=== PATIENT | female | born 1965 | race American Indian/Alaskan Native ===

== ENCOUNTER 2017-03-30 13:18 | Day surgery (SDC) | payer OTHER ==
[2017-03-30] MEDS ORDERED: NACL 0.9% 1000 ML 1,000 ML IV SCH (14:00)
--- NOTE | 2017-03-30 14:39 | Anesthesia Day of Surgery ---
Anesthesia Day of Surgery - Day of Surgery Patient Examined: Yes Patient H&P Reviewed: Yes Patient is NPO: Yes Beta Blockers: Yes
--- NOTE | 2017-03-30 14:41 | Anesthesia Consultation ---
Anesthesia Consult and Med Hx Date of service: 03/30/17 - Airway Anesthetic Teeth Evaluation: Good ROM Head & Neck: Adequate Mental/Hyoid Distance: Adequate Mallampati Class: Class II Intubation Access Assessment: Probably Good - Pulmonary Exam CTA: Yes - Cardiac Exam Cardiac Exam: RRR - Pre-Operative Health Status ASA Pre-Surgery Classification: ASA3 Proposed Anesthetic Plan: MAC - Pulmonary Hx Smoking: No Hx Asthma: Yes (had been hospitalized in the past. Inhaler everyday) Hx Sleep Apnea: No - Cardiovascular System Hx Hypertension: Yes (irregular heart beat on atenolol) Hx Heart Attack/AMI: No - Central Nervous System Hx Seizures: Yes (long time ago, on not meds) CVA: No - Gastrointestinal Hx Gastroesophageal Reflux Disease: No - Endocrine Hx Renal Disease: No Hx Liver Disease: No Hx Non-Insulin Dependent Diabetes: No - Hematic Hx Anemia: Yes - Other Systems Hx Cancer: No - Additional Comments Anesthesia Medical History Comments: NAC
[2017-03-30] MEDS ORDERED: DIPRIVAN 10 MG/ML IV ONE ×2 (16:18)
[2017-03-30] MEDS ORDERED: WATER FOR IRRIG STERILE IR ONE (16:29)
[2017-03-30] MEDS ORDERED: WATER FOR IRRIG STERILE ONE (16:29)
--- NOTE | 2017-03-30 17:03 | Operative Report ---
Operative Report Operative Report: Date of procedure: 03/30/2017 Procedure: Colonoscopy with Multiple Hot Biopsy Polypectomies. Attending physician: Darrell Arambula MD Cad Draftsman: Darrell Arambula MD Indication: Patient is a 51-year-old female who presents for screening colonoscopy. This colonoscopy serves to evaluate patient so that treatment may be directed based on the findings. Consent: Informed consent was obtained after advising the patient and family regarding nature of this procedure, its indications, potential benefits as well as possible complications including but not limited to bleeding perforation and adverse reaction to medication, infection as well as other cardiopulmonary complications. An informed written and verbal consent was then obtained after due opportunity was provided for questions and answers. Monitoring: Patient was monitored continuously with pulse oximetry and electrocardiographic recordings as well as blood pressure recordings. Vital signs remained stable throughout this procedure with no untoward events. Preoperative assessment: Patient was assessed immediately prior to this procedure for capacity to tolerate monitored anesthesia care and moderate sedation as well as general anesthesia. Patient's ASA classification is 2, Mallampati class is 2, Hyomental distance is 3. Instrument: [id number] video colonoscope Medications: Propofol given intravenously in divided doses. For details please refer to anesthesia records. Description of procedure: Patient was placed in the left lateral decubitus position after achieving sedation, a digital rectal examination was performed following which the colonoscope was introduced into the anal verge and advanced to the cecum which was identified by the cecal valve, the appendiceal orifice, as well as by the cecal strap and direct transillumination. The colonoscope was subsequently withdrawn with careful inspection of all mucosal surfaces. Patient tolerated this procedure well and was subsequently taken to the recovery room. The following findings were noted. Findings: Patient had 3 diminutive flat polyps in the sigmoid colon which measured 3-5 mm. These polyps were removed by hot biopsy polypectomy. There were scattered diverticula in the sigmoid colon and descending colon. The rest of the colon to the cecum was normal. On the retroflex view at the anal verge, patient had internal hemorrhoids. Impression: Multiple diminutive sigmoid colon polyp status post hot biopsy polypectomy. Diverticula disease of the colon. Internal hemorrhoids. Plan: Follow pathology report. High-fiber diet. Repeat colonoscopy in 5 years.
--- NOTE | 2017-03-30 17:04 | Discharge Summary ---
Short Stay Discharge Plan Activity: advance as tolerated Weight Bearing Status: Weight Bear as Tolerated Diet: regular Follow up with: CORNELIO BRAND MD [Primary Care Provider] - 7 Days
[2017-03-30 17:42] VITALS: BP 104/54
--- NOTE | 2017-03-30 18:07 | Post Anesthesia Evaluation ---
- Post Anesthesia Evaluation Patient Participated: Yes Airway Patent: Yes Stable Respiratory Function: Yes Nausea/Vomiting: No Temp > 96.8F: Yes Pain Manageable: Yes Adequeate Hydration: Yes Anesthesia Complications: No
== END 2017-03-30 13:19 | disposition home or self-care (01) ==
LOC: GIO 13:18
PROVIDERS: ATTEND Internal Medicine Gastroenterology
DX: Z12.11 Encounter for screening for malignant neoplasm of colon (principal); K63.5 Polyp of colon; K57.30 Diverticulosis of large intestine without perforation or abscess without bleeding; K64.8 Other hemorrhoids; M19.90 Unspecified osteoarthritis, unspecified site; J45.909 Unspecified asthma, uncomplicated; I10 Essential (primary) hypertension; D64.9 Anemia, unspecified; Z79.899 Other long term (current) drug therapy; Z82.49 Family history of ischemic heart disease and other diseases of the circulatory system
CPT/HCPCS: 45384; 88305; J2704; J7030

== ENCOUNTER 2017-06-16 09:59 | Outpatient (CLI) | payer OTHER ==
--- NOTE | 2017-06-16 15:16 | Vascular Lab Report ---
Left Lower Extremity Venous Duplex Study: Reason for Exam: Pain of the left lower extremity. Comments on the Right: A limited duplex study was done of the proximal veins of the right lower extremity. All veins visualized are freely compressible without evidence of internal echogenicity. Flow is spontaneous and phasic throughout. No evidence of acute or chronic thrombus is seen in any of the vessels visualized. Comments on the Left: All veins visualized are freely compressible without evidence of internal echogenicity. Flow is spontaneous and phasic throughout. No evidence of acute or chronic thrombus is seen in any of the vessels visualized. Impression: No evidence of acute or chronic deep venous thrombosis in the left lower extremity.
== END 2017-06-16 10:00 | disposition home or self-care (01) ==
LOC: VAS 09:59
PROVIDERS: ATTEND Internal Medicine
DX: M79.605 Pain in left leg (principal); I10 Essential (primary) hypertension; E78.00 Pure hypercholesterolemia, unspecified; D64.9 Anemia, unspecified; J45.909 Unspecified asthma, uncomplicated

== ENCOUNTER 2017-10-18 09:12 | Outpatient (CLI) | payer OTHER ==
--- NOTE | 2017-10-18 09:41 | XRay Report ---
RIGHT FINGERS, 3 VIEWS History: Pain. Findings: No acute osseous findings or joint pathology is identified. Soft tissues are unremarkable. Impression: Unremarkable right fingers.
== END 2017-10-18 09:13 | disposition home or self-care (01) ==
LOC: XRAY 09:12
PROVIDERS: ATTEND Internal Medicine
DX: M79.644 Pain in right finger(s) (principal)

== ENCOUNTER 2019-06-05 16:59 | Emergency (ER) | payer OTHER, SELFPAY ==
--- NOTE | 2019-06-05 17:10 | Emergency Department Report ---
Blank Doc - Documentation Documentation: This is a 53-year-old female that presents with left sided weakness, AMS, unable to speak. This initial assessment/diagnostic orders/clinical plan/treatment(s) is/are subject to change based on patient's health status, clinical progression and re- assessment by fellow clinical providers in the ED. Further treatment and workup at subsequent clinical providers discretion. Patient/guardians urged not to elope from the ED as their condition may be serious if not clinically assessed and managed. Initial orders include: 1- Patient sent to MAIN ED for further evaluation and treatment 2- code stroke initiated 3- stroke protocol ordered
--- NOTE | 2019-06-05 17:40 | Cat Scan Report ---
CT head/brain wo con INDICATION / CLINICAL INFORMATION: 53 years Female; MAIN: CODE STROKE [phone] . 53-year-old female with TECHNIQUE: Routine CT head without contrast. All CT scans at this location are performed using CT dos e reduction for ALARA by means of automated exposure control. Motion artifact COMPARISON: 10/08/2018 FINDINGS: BRAIN / INTRACRANIAL CONTENTS: No acute hemorrhage, mass effect, midline shift, hydrocephalus, or acu te, large territorial infarct. No chronic infarct or focal atrophy. Normal brain volume and ventricul ar/sulcal size for age. No significant white matter abnormality. Mild superior vermian atrophy suggested-would question chronic EtOH usage. CRANIOCERVICAL JUNCTION: No significant abnormality. ORBITS: No significant abnormality of visualized orbits. SINUSES / MASTOIDS: No significant abnormality of the visualized paranasal sinuses or mastoid air magdiel ls. ADDITIONAL FINDINGS: None. IMPRESSION: 1. No focal mass, hemorrhage, hydrocephalus, or acute, large territorial infarct. This exam was performed as part of a code stroke protocol. The exam was completed at 4:25 PM central time on 06/05/2019. The exam was reviewed at 4:30 PM and emergency room was notified at 4:32 PM. Signer Name: Carlos Reyes MD, III Signed: 06/05/2019 5:36 PM Workstation Name: [id number]
--- NOTE | 2019-06-05 17:41 | Emergency Department Report ---
ED Neuro Deficit HPI - General Chief Complaint: Neuro Symptoms/Deficit Stated Complaint: CHEST PAIN Time Seen by Provider: 06/05/19 17:17 Source: patient Mode of arrival: Ambulatory Limitations: Altered Mental Status - History of Present Illness Initial Comments: Patient is a 53-year-old female that is emergency room with chest pain and left leglarm numbness and difficulty speaking. Patient states her symptoms started 8 AM this morning. Patient states that her left leg/arm numbness and left arm and left leg weakness and difficulty speaking started at 8 AM and is worsening. Patient states her chest pain started today at 8 AM and is worsening. Patient states her chest pain has been intermittent over the past weeks but today it has been constant since it a.m. Patient states her pain is a 7 out of 10. Patient states her pain is better with rest and worse with exertion. Patient states she hasn't history of hypertension but has been noncompliant with her medications. Patient states she started her medications morning. Patient states she has a history of high cholesterol and denies diabetes and CHF. Patient denies shortness of breath. Patient denies fever and chills. -: Sudden Location: speech, left arm, left leg Presenting Symptoms: Present: Weak/Paralyzed One Side, Unable to Speak Clearly History of same: No Place: home Severity: severe Quality: weak, numb Improves With: rest Worsens With: other On Anticoagulants: No Context: sudden onset Associated Symptoms: chest pain, weakness. denies: confusion, cough, diaphoresis, fever/chills, headaches, loss of appetite, malise, nausea/vomiting, vertigo, seizures, shortness of breath, syncope - Related Data Home Medications: Home Medications Medication Instructions Recorded Confirmed Last Taken Pravastatin Sodium 10 mg PO DAILY 03/30/17 10/17/18 10/17/18 ALBUTEROL NEB's PRN 10/18/18 Unknown Fluticasone/Salmeterol(Nf) [Advair PRN 10/18/18 Unknown HFA 230-21 mcg] Previous Rx's Medication Instructions Recorded Last Taken Type Diphenhydramine HCl/Zinc Acet 28.3 gm TP Q6H PRN #1 cream..g. 10/19/18 Unknown Rx [Benadryl Itch Stopping Crm] Hydrocortisone 2.5% [Hytone 2.5% 1 applicatio TP BID #1 tube 10/19/18 Unknown Rx CREAM] Prednisone [predniSONE 10 mg 10 mg PO .TAPER #1 tab.ds.pk 10/19/18 Unknown Rx (6-Day Pack, 21 Tabs)] amLODIPine [Norvasc] 10 mg PO QDAY #30 tablet 10/19/18 Unknown Rx diphenhydrAMINE [Benadryl CAP] 25 mg PO Q6H PRN #30 capsule 10/19/18 Unknown Rx Allergies/Adverse Reactions: Allergies Allergy/AdvReac Type Severity Reaction Status Date / Time allopurinol AdvReac Severe Rash Verified 10/19/18 19:40 ED Review of Systems ROS: Stated complaint: CHEST PAIN Other details as noted in HPI Constitutional: weakness. denies: chills, fever Eyes: denies: eye pain, eye discharge, vision change ENT: denies: ear pain, throat pain Respiratory: denies: cough, shortness of breath, wheezing Cardiovascular: chest pain. denies: palpitations Endocrine: no symptoms reported Gastrointestinal: denies: abdominal pain, nausea, diarrhea Genitourinary: denies: urgency, dysuria, discharge Musculoskeletal: denies: back pain, joint swelling, arthralgia Skin: denies: rash, lesions Neurological: weakness, numbness. denies: headache, paresthesias Psychiatric: denies: anxiety, depression Hematological/Lymphatic: denies: easy bleeding, easy bruising ED Past Medical Hx - Past Medical History Previous Medical History?: Yes Hx Hypertension: Yes (irregular heart beat on atenolol) Hx Heart Attack/AMI: No Hx Liver Disease: No Hx Renal Disease: No Hx Arthritis: Yes (gout) Hx Seizures: Yes (long time ago, on not meds) Hx Asthma: Yes (had been hospitalized in the past. Inhaler everyday) Additional medical history: a-fib - Surgical History Past Surgical History?: Yes Additional Surgical History: x3 - Family History Family history: no significant - Social History Smoking Status: Never Smoker Substance Use Type: None - Medications Home Medications: Home Medications Medication Instructions Recorded Confirmed Last Taken Type Pravastatin Sodium 10 mg PO DAILY 03/30/17 10/17/18 10/17/18 History ALBUTEROL NEB's PRN 10/18/18 Unknown History Fluticasone/Salmeterol(Nf) [Advair PRN 10/18/18 Unknown History HFA 230-21 mcg] Diphenhydramine HCl/Zinc Acet 28.3 gm TP Q6H PRN #1 cream..g. 10/19/18 Unknown Rx [Benadryl Itch Stopping Crm] Hydrocortisone 2.5% [Hytone 2.5% 1 applicatio TP BID #1 tube 10/19/18 Unknown Rx CREAM] Prednisone [predniSONE 10 mg 10 mg PO .TAPER #1 tab.ds.pk 10/19/18 Unknown Rx (6-Day Pack, 21 Tabs)] amLODIPine [Norvasc] 10 mg PO QDAY #30 tablet 10/19/18 Unknown Rx diphenhydrAMINE [Benadryl CAP] 25 mg PO Q6H PRN #30 capsule 10/19/18 Unknown Rx ED Neuro Physical Exam - General Limitations: No Limitations, Physical Limitation General appearance: alert, in no apparent distress Suspected Stroke: No - Head Head exam: Present: atraumatic, normocephalic - Eye Eye exam: Present: normal appearance - ENT ENT exam: Present: mucous membranes moist - Neck Neck exam: Present: normal inspection - Respiratory Respiratory exam: Present: normal lung sounds bilaterally. Absent: respiratory distress - Cardiovascular Cardiovascular Exam: Present: regular rate, normal rhythm. Absent: systolic murmur, diastolic murmur, rubs, gallop - GI/Abdominal GI/Abdominal exam: Present: soft, normal bowel sounds - Rectal Rectal exam: Present: deferred - Extremities Exam Extremities exam: Present: normal inspection - Back Exam Back exam: Present: normal inspection - Neurological Exam Neurological exam: Present: alert, oriented X3 - NIHSS Assessment Interval: Baseline 1a. Level of Consciousness: alert/keenly responsive 1b. LOC Questions: answers both correctly 1c. LOC Commands: performs tasks correctly 2. Best Gaze: normal 3. Visual: no visual loss 4. Facial Palsy: normal symmetrical movement 5b. Motor Arm Right: no drift 5a. Motor Arm Left: some gravity effort 6a. Motor Leg Left: some gravity effort 6b. Motor Leg Right: no drift 7. Limb Ataxia: absent 8. Sensory: normal 9. Best Language: no aphasia 10. Dysarthria: mild/moderate dysarthria 11. Extinction/Inattention: no abnormality Total Score: 5 Stroke Severity: Moderate Stroke - Psychiatric Psychiatric exam: Present: normal affect, normal mood - Skin Skin exam: Present: warm, dry, intact, normal color. Absent: rash ED Course Vital Signs 06/05/19 06/05/19 06/05/19 17:53 18:00 18:16 Pulse Rate 58 L 63 Respiratory 11 L Rate Blood Pressure 175/92 175/92 Blood Pressure [Left] O2 Sat by Pulse 100 100 Oximetry 06/05/19 06/05/19 18:30 20:30 Pulse Rate 62 58 L Respiratory 17 12 Rate Blood Pressure 166/89 Blood Pressure 159/83 [Left] O2 Sat by Pulse 100 100 Oximetry - Reevaluation(s) Reevaluation #1: Patient's blood pressure elevated and patient will be given morphine and 10 of hydralazine. 06/05/19 17:48 Reevaluation #2: Patient's blood pressure better. Patient's pain is better. Discussed all results with patient. Patient will be admitted to the hospitalist service. Patient agrees to plan of care. 06/05/19 18:54 - Consultations Consultation #1: Discussed case with neurologist. Neurologist states the patient is outside the TPA window and he believes this is more of a functional issue. Neurologist recommends admission for MRI and further stroke neurologic workup. 06/05/19 17:39 Consultation #2: Hospitalist consulted for admission. Hospitalist to admit patient. Hospitalist to assume care patient. 06/05/19 18:54 - Lab Data Result diagrams: 06/05/19 17:44 06/05/19 17:44 Lab Results 06/05/19 06/05/19 06/05/19 Range/Units 17:12 17:44 17:44 WBC 5.9 (4.5-11.0) K/mm3 RBC 4.29 (3.65-5.03) M/mm3 Hgb 13.0 (10.1-14.3) gm/dl Hct 38.7 (30.3-42.9) % MCV 90 (79-97) fl MCH 30 (28-32) pg MCHC 34 (30-34) % RDW 13.1 L (13.2-15.2) % Plt Count 308 (140-440) K/mm3 Lymph % (Auto) Environmental Web Crawler Add Manual Diff Complete Total Counted 100 Seg Neutrophils % Environmental Web Crawler Seg Neuts % (Manual) 30.0 L (40.0-70.0) % Band Neutrophils % 0 % Lymphocytes % (Manual) 52.0 H (13.4-35.0) % Reactive Lymphs % (Man) 0 % Monocytes % (Manual) 9.0 H (0.0-7.3) % Eosinophils % (Manual) 9.0 H (0.0-4.3) % Basophils % (Manual) 0 (0.0-1.8) % Metamyelocytes % 0 % Myelocytes % 0 % Promyelocytes % 0 % Blast Cells % 0 % Nucleated RBC % Not Reportable Seg Neutrophils # Man 1.8 (1.8-7.7) K/mm3 Band Neutrophils # 0.0 K/mm3 Lymphocytes # (Manual) 3.1 (1.2-5.4) K/mm3 Abs React Lymphs (Man) 0.0 K/mm3 Monocytes # (Manual) 0.5 (0.0-0.8) K/mm3 Eosinophils # (Manual) 0.5 H (0.0-0.4) K/mm3 Basophils # (Manual) 0.0 (0.0-0.1) K/mm3 Metamyelocytes # 0.0 K/mm3 Myelocytes # 0.0 K/mm3 Promyelocytes # 0.0 K/mm3 Blast Cells # 0.0 K/mm3 WBC Morphology Not Reportable Hypersegmented Neuts Not Reportable Hyposegmented Neuts Not Reportable Hypogranular Neuts Not Reportable Smudge Cells Not Reportable Toxic Granulation Not Reportable Toxic Vacuolation Not Reportable Dohle Bodies Not Reportable Pelger-Huet Anomaly Not Reportable Jackie Rods Not Reportable Platelet Estimate Consistent w auto Clumped Platelets Not Reportable Plt Clumps, EDTA Not Reportable Large Platelets Not Reportable Giant Platelets Not Reportable Platelet Satelliting Not Reportable Plt Morphology Comment Not Reportable RBC Morphology Not Reportable Dimorphic RBCs Not Reportable Polychromasia Not Reportable Hypochromasia Not Reportable Poikilocytosis Not Reportable Anisocytosis Few Microcytosis Not Reportable Macrocytosis Not Reportable Spherocytes Not Reportable Pappenheimer Bodies Not Reportable Sickle Cells Not Reportable Target Cells Not Reportable Tear Drop Cells Not Reportable Ovalocytes Few Helmet Cells Not Reportable [place] Bodies Not Reportable [place] Rings Not Reportable Meri Cells Not Reportable Bite Cells Not Reportable Crenated Cell Not Reportable Elliptocytes Rare Acanthocytes (Spur) Not Reportable Rouleaux Not Reportable Hemoglobin C Crystals Not Reportable Schistocytes Not Reportable Malaria parasites Not Reportable Horacio Bodies Not Reportable Hem Pathologist Commnt No PT 12.5 (12.2-14.9) Sec. INR 0.96 (0.87-1.13) APTT 30.4 (24.2-36.6) Sec. Thrombin Time 16.5 (15.1-19.6) Sec. D-Dimer (0-234) ng/mlDDU Sodium (137-145) mmol/L Potassium (3.6-5.0) mmol/L Chloride (98-107) mmol/L Carbon Dioxide (22-30) mmol/L Anion Gap mmol/L BUN (7-17) mg/dL Creatinine (0.7-1.2) mg/dL Estimated GFR ml/min BUN/Creatinine Ratio % Glucose (65-100) mg/dL POC Glucose 106 H (70-105) Calcium (8.4-10.2) mg/dL Total Bilirubin (0.1-1.2) mg/dL AST (5-40) units/L ALT (7-56) units/L Alkaline Phosphatase (35-129) units/L Total Creatine Kinase (30-135) units/L CK-MB (CK-2) (0.0-4.0) ng/mL CK-MB (CK-2) Rel Index (0-4) Troponin T (0.00-0.029) ng/mL Total Protein (6.3-8.2) g/dL Albumin (3.9-5) g/dL Albumin/Globulin Ratio % Urine Color (Yellow) Urine Turbidity (Clear) Urine pH (5.0-7.0) Ur Specific [place] (1.003-1.030) Urine Protein (Negative) mg/dL Urine Glucose (UA) (Negative) mg/dL Urine Ketones (Negative) mg/dL Urine Blood (Negative) Urine Nitrite (Negative) Urine Bilirubin (Negative) Urine Urobilinogen (<2.0) mg/dL Ur Leukocyte Esterase (Negative) Urine WBC (Auto) (0.0-6.0) /HPF Urine RBC (Auto) (0.0-6.0) /HPF Urine Opiates Screen Urine Methadone Screen Ur Barbiturates Screen Ur Phencyclidine Scrn Ur Amphetamines Screen U Benzodiazepines Scrn Urine Cocaine Screen U Marijuana (THC) Screen Drugs of Abuse Note Blood Type Antibody Screen 06/05/19 06/05/19 06/05/19 Range/Units 17:44 17:44 17:45 WBC (4.5-11.0) K/mm3 RBC (3.65-5.03) M/mm3 Hgb (10.1-14.3) gm/dl Hct (30.3-42.9) % MCV (79-97) fl MCH (28-32) pg MCHC (30-34) % RDW (13.2-15.2) % Plt Count (140-440) K/mm3 Lymph % (Auto) Add Manual Diff Total Counted Seg Neutrophils % Seg Neuts % (Manual) (40.0-70.0) % Band Neutrophils % % Lymphocytes % (Manual) (13.4-35.0) % Reactive Lymphs % (Man) % Monocytes % (Manual) (0.0-7.3) % Eosinophils % (Manual) (0.0-4.3) % Basophils % (Manual) (0.0-1.8) % Metamyelocytes % % Myelocytes % % Promyelocytes % % Blast Cells % % Nucleated RBC % Seg Neutrophils # Man (1.8-7.7) K/mm3 Band Neutrophils # K/mm3 Lymphocytes # (Manual) (1.2-5.4) K/mm3 Abs React Lymphs (Man) K/mm3 Monocytes # (Manual) (0.0-0.8) K/mm3 Eosinophils # (Manual) (0.0-0.4) K/mm3 Basophils # (Manual) (0.0-0.1) K/mm3 Metamyelocytes # K/mm3 Myelocytes # K/mm3 Promyelocytes # K/mm3 Blast Cells # K/mm3 WBC Morphology Hypersegmented Neuts Hyposegmented Neuts Hypogranular Neuts Smudge Cells Toxic Granulation Toxic Vacuolation Dohle Bodies Pelger-Huet Anomaly Jackie Rods Platelet Estimate Clumped Platelets Plt Clumps, EDTA Large Platelets Giant Platelets Platelet Satelliting Plt Morphology Comment RBC Morphology Dimorphic RBCs Polychromasia Hypochromasia Poikilocytosis Anisocytosis Microcytosis Macrocytosis Spherocytes Pappenheimer Bodies Sickle Cells Target Cells Tear Drop Cells Ovalocytes Helmet Cells [place] Bodies [place] Rings Meri Cells Bite Cells Crenated Cell Elliptocytes Acanthocytes (Spur) Rouleaux Hemoglobin C Crystals Schistocytes Malaria parasites Horacio Bodies Hem Pathologist Commnt PT (12.2-14.9) Sec. INR (0.87-1.13) APTT (24.2-36.6) Sec. Thrombin Time (15.1-19.6) Sec. D-Dimer < 135 (0-234) ng/mlDDU Sodium 143 (137-145) mmol/L Potassium 3.6 (3.6-5.0) mmol/L Chloride 60.0 L (98-107) mmol/L Carbon Dioxide 26 (22-30) mmol/L Anion Gap 17 mmol/L BUN 15 (7-17) mg/dL Creatinine < 0.2 L (0.7-1.2) mg/dL Estimated GFR > 60 ml/min BUN/Creatinine Ratio 17 % Glucose 103 H (65-100) mg/dL POC Glucose (70-105) Calcium 9.8 (8.4-10.2) mg/dL Total Bilirubin 0.30 (0.1-1.2) mg/dL AST 21 (5-40) units/L ALT 13 (7-56) units/L Alkaline Phosphatase 70 (35-129) units/L Total Creatine Kinase 202 H (30-135) units/L CK-MB (CK-2) 2.5 (0.0-4.0) ng/mL CK-MB (CK-2) Rel Index 1.2 (0-4) Troponin T < 0.010 (0.00-0.029) ng/mL Total Protein 7.6 (6.3-8.2) g/dL Albumin 4.6 (3.9-5) g/dL Albumin/Globulin Ratio 1.5 % Urine Color Colorless (Yellow) Urine Turbidity Clear (Clear) Urine pH 7.0 (5.0-7.0) Ur Specific [place] 1.005 (1.003-1.030) Urine Protein <15 mg/dl (Negative) mg/dL Urine Glucose (UA) Neg (Negative) mg/dL Urine Ketones Neg (Negative) mg/dL Urine Blood Neg (Negative) Urine Nitrite Neg (Negative) Urine Bilirubin Neg (Negative) Urine Urobilinogen < 2.0 (<2.0) mg/dL Ur Leukocyte Esterase Neg (Negative) Urine WBC (Auto) 3.0 (0.0-6.0) /HPF Urine RBC (Auto) 2.0 (0.0-6.0) /HPF Urine Opiates Screen Urine Methadone Screen Ur Barbiturates Screen Ur Phencyclidine Scrn Ur Amphetamines Screen U Benzodiazepines Scrn Urine Cocaine Screen U Marijuana (THC) Screen Drugs of Abuse Note Blood Type Antibody Screen 06/05/19 06/05/19 Range/Units 17:45 17:47 WBC (4.5-11.0) K/mm3 RBC (3.65-5.03) M/mm3 Hgb (10.1-14.3) gm/dl Hct (30.3-42.9) % MCV (79-97) fl MCH (28-32) pg MCHC (30-34) % RDW (13.2-15.2) % Plt Count (140-440) K/mm3 Lymph % (Auto) Add Manual Diff Total Counted Seg Neutrophils % Seg Neuts % (Manual) (40.0-70.0) % Band Neutrophils % % Lymphocytes % (Manual) (13.4-35.0) % Reactive Lymphs % (Man) % Monocytes % (Manual) (0.0-7.3) % Eosinophils % (Manual) (0.0-4.3) % Basophils % (Manual) (0.0-1.8) % Metamyelocytes % % Myelocytes % % Promyelocytes % % Blast Cells % % Nucleated RBC % Seg Neutrophils # Man (1.8-7.7) K/mm3 Band Neutrophils # K/mm3 Lymphocytes # (Manual) (1.2-5.4) K/mm3 Abs React Lymphs (Man) K/mm3 Monocytes # (Manual) (0.0-0.8) K/mm3 Eosinophils # (Manual) (0.0-0.4) K/mm3 Basophils # (Manual) (0.0-0.1) K/mm3 Metamyelocytes # K/mm3 Myelocytes # K/mm3 Promyelocytes # K/mm3 Blast Cells # K/mm3 WBC Morphology Hypersegmented Neuts Hyposegmented Neuts Hypogranular Neuts Smudge Cells Toxic Granulation Toxic Vacuolation Dohle Bodies Pelger-Huet Anomaly Jackie Rods Platelet Estimate Clumped Platelets Plt Clumps, EDTA Large Platelets Giant Platelets Platelet Satelliting Plt Morphology Comment RBC Morphology Dimorphic RBCs Polychromasia Hypochromasia Poikilocytosis Anisocytosis Microcytosis Macrocytosis Spherocytes Pappenheimer Bodies Sickle Cells Target Cells Tear Drop Cells Ovalocytes Helmet Cells [place] Bodies [place] Rings Meri Cells Bite Cells Crenated Cell Elliptocytes Acanthocytes (Spur) Rouleaux Hemoglobin C Crystals Schistocytes Malaria parasites Horacio Bodies Hem Pathologist Commnt PT (12.2-14.9) Sec. INR (0.87-1.13) APTT (24.2-36.6) Sec. Thrombin Time (15.1-19.6) Sec. D-Dimer (0-234) ng/mlDDU Sodium (137-145) mmol/L Potassium (3.6-5.0) mmol/L Chloride (98-107) mmol/L Carbon Dioxide (22-30) mmol/L Anion Gap mmol/L BUN (7-17) mg/dL Creatinine (0.7-1.2) mg/dL Estimated GFR ml/min BUN/Creatinine Ratio % Glucose (65-100) mg/dL POC Glucose (70-105) Calcium (8.4-10.2) mg/dL Total Bilirubin (0.1-1.2) mg/dL AST (5-40) units/L ALT (7-56) units/L Alkaline Phosphatase (35-129) units/L Total Creatine Kinase (30-135) units/L CK-MB (CK-2) (0.0-4.0) ng/mL CK-MB (CK-2) Rel Index (0-4) Troponin T (0.00-0.029) ng/mL Total Protein (6.3-8.2) g/dL Albumin (3.9-5) g/dL Albumin/Globulin Ratio % Urine Color (Yellow) Urine Turbidity (Clear) Urine pH (5.0-7.0) Ur Specific [place] (1.003-1.030) Urine Protein (Negative) mg/dL Urine Glucose (UA) (Negative) mg/dL Urine Ketones (Negative) mg/dL Urine Blood (Negative) Urine Nitrite (Negative) Urine Bilirubin (Negative) Urine Urobilinogen (<2.0) mg/dL Ur Leukocyte Esterase (Negative) Urine WBC (Auto) (0.0-6.0) /HPF Urine RBC (Auto) (0.0-6.0) /HPF Urine Opiates Screen Presumptive negative Urine Methadone Screen Presumptive negative Ur Barbiturates Screen Presumptive negative Ur Phencyclidine Scrn Presumptive negative Ur Amphetamines Screen Presumptive negative U Benzodiazepines Scrn Presumptive negative Urine Cocaine Screen Presumptive negative U Marijuana (THC) Screen Presumptive negative Drugs of Abuse Note Disclamer Blood Type A POSITIVE Antibody Screen Negative - EKG Data -: EKG Interpreted by Ia EKG shows normal: sinus rhythm, axis, intervals, QRS complexes, ST-T waves Rate: normal - Radiology Data Radiology results: report reviewed CT head/brain wo con INDICATION / CLINICAL INFORMATION: 53 years Female; MAIN: CODE STROKE [id number] . 53-year-old female with TECHNIQUE: Routine CT head without contrast. All CT scans at this location are performed using CT dose reduction for ALARA by means of automated exposure control. Motion artifact COMPARISON: 10/08/2018 FINDINGS: BRAIN / INTRACRANIAL CONTENTS: No acute hemorrhage, mass effect, midline shift, hydrocephalus, or acute, large territorial infarct. No chronic infarct or focal atrophy. Normal brain volume and ventricular/sulcal size for age. No significant white matter abnormality. Mild superior vermian atrophy suggested-would question chronic EtOH usage. CRANIOCERVICAL JUNCTION: No significant abnormality. ORBITS: No significant abnormality of visualized orbits. SINUSES / MASTOIDS: No significant abnormality of the visualized paranasal sinuses or mastoid air cells. ADDITIONAL FINDINGS: None. IMPRESSION: 1. No focal mass, hemorrhage, hydrocephalus, or acute, large territorial infarct. - Medical Decision Making Patient is a 53-year-old female that presents emergency room for left-sided weakness and numbness and difficulty speaking and chest pain. Patient was admitted to the hospitalist service. Patient's labs unremarkable. head CT negative. EKG negative. Patient's chest x-ray negative. - Differential Diagnosis weakness. CVA. Chest pain. Psychosomatic - Core Measures AMI Core Measures Followed: Yes Critical Care Time: Yes Critical care attestation.: If time is entered above; I have spent that time in minutes in the direct care of this critically ill patient, excluding procedure time. Critical Care Time: 35 minutes ED Disposition Clinical Impression: Malignant hypertension, Difficulty speaking, Left-sided weakness, Left arm numbness Chest pain Qualifiers: Chest pain type: unspecified Qualified Code(s): R07.9 - Chest pain, unspecified Disposition: DC-09 OP ADMIT IP TO THIS HOSP Is pt being admited?: Yes Does the pt Need Aspirin: No Condition: Critical Instructions: Chest Pain (ED) Forms: AMA Form Time of Disposition: 18:54
--- NOTE | 2019-06-05 17:44 | Consultation ---
History of Present Illness History of present illness: [facility] Impression: Patient with left-sided weakness since 0800. Exam appears more functional. Rule out stroke with MRI brain wo. Out of window for tPA. Presentation without cortical/large vessel signs/symptoms, so no role for advanced imaging at this time. Not a tpa candidate due to: out of window Not an [place] candidate due to: presentation not suggestive of LVO Differential Diagnosis: 1. Cardioembolic stroke 2. Small vessel disease/lacune 3. Thromboembolic, [id number] mechanism 4. Hypercoagulable state-related infarct 5. Transient ischemic attack 6. Thrombotic mechanism, large artery disease 7. Conversion Comments: Door time: 1659 [facility] contacted: 1712 [facility] at bedside: 1721 NIHSS assessment time: 1724 Recommendations: MRI brain wo - if positive for stroke, can start ASA and stroke work up inpatient neurology consultation Inpatient stroke evaluation as per Neurology/ Internal Medicine Discussed with ED MD --------- CC: stroke alert History of Present Illness Patient is a53 year old woman with a history of HTN, HLD presenting with left- sided weakness. Last normal at 0800. Weakness began thereafter. Speech became softer too. No numbness, vision changes, language dysfunction, incoordination, vertigo, CP, [place]. She was transported by private vehicle and able to transfer herself. Diagnostic: CT head wo - nothing acute Exam: NIHSS score: 5 She has giveway weakness in LUE/LLE, and at times can sustain antigravity but flails the LUE/LLE [id number] She has no facial weakness, but is very clearly volitionally pulling the corner of the left side of the mouth down, and this is easily distracted away Medical Decision Making: - Extensive number of diagnosis or management options are considered above. - Extensive amount of complex data reviewed. - High risk of complication and/or morbidity or mortality are associated with differential diagnostic considerations above. - There may be Uncertain outcome and increased probability of prolonged functional impairment or high probability of severe prolonged functional impairment associated with some of these differential diagnosis. Medical Data Reviewed: 1.Data reviewed include clinical labs, radiology, Medical Tests; 2.Tests results discussed w/performing or interpreting physician; 3.Obtaining/reviewing old medical records; 4.Obtaining case history from another source; 5.Independent review of image, tracing or specimen. Patient was informed the Neurology Consult would happen via Tele[facility] consult by way of interactive audio and video telecommunications and consented to receiving care in this manner. Medications and Allergies Allergies Allergy/AdvReac Type Severity Reaction Status Date / Time allopurinol AdvReac Severe Rash Verified 10/19/18 19:40 Home Medications Medication Instructions Recorded Confirmed Last Taken Type Pravastatin Sodium 10 mg PO DAILY 03/30/17 10/17/18 10/17/18 History ALBUTEROL NEB's PRN 10/18/18 Unknown History Fluticasone/Salmeterol(Nf) [Advair PRN 10/18/18 Unknown History HFA 230-21 mcg] Diphenhydramine HCl/Zinc Acet 28.3 gm TP Q6H PRN #1 cream..g. 10/19/18 Unknown Rx [Benadryl Itch Stopping Crm] Hydrocortisone 2.5% [Hytone 2.5% 1 applicatio TP BID #1 tube 10/19/18 Unknown Rx CREAM] Prednisone [predniSONE 10 mg 10 mg PO .TAPER #1 tab.ds.pk 10/19/18 Unknown Rx (6-Day Pack, 21 Tabs)] amLODIPine [Norvasc] 10 mg PO QDAY #30 tablet 10/19/18 Unknown Rx diphenhydrAMINE [Benadryl CAP] 25 mg PO Q6H PRN #30 capsule 10/19/18 Unknown Rx - Level of Consciousness 1a. Level of Consciousness: alert/keenly responsive - LOC Questions 1b. LOC Questions: answers 1 question correctly - LOC Command 1c. LOC Commands: performs tasks correctly - Best Gaze 2. Best Gaze: normal - Visual 3. Visual: no visual loss - Facial Palsy 4. Facial Palsy: normal symmetrical movement - Motor Arm 5a. Motor Arm Left: some gravity effort 5b. Motor Arm Right: no drift - Motor Leg 6a. Motor Leg Left: some gravity effort 6b. Motor Leg Right: no drift - Limb Ataxia 7. Limb Ataxia: absent - Sensory 8. Sensory: normal - Best Language 9. Best Language: no aphasia - Dysarthria 10. Dysarthria: normal - Extinction and Inattention 11. Extinction/Inattention: no abnormality - Scoring Total Score: 5 Stroke Severity: Moderate Stroke Results - Laboratory Findings Abnormal Lab Findings: Abnormal Labs 06/05/19 17:12 POC Glucose 106 H
[2019-06-05] MEDS ORDERED: MORPHINE IV ONE (17:48)
[2019-06-05] MEDS ORDERED: ASPIRIN PO ONE (17:48)
[2019-06-05] MEDS ORDERED: APRESOLINE IV ONE (17:48)
[2019-06-05 17:58] LABS: Bilirubin,Urine NEG (Negative); Blood,Urine NEG (Negative); Color,Urine Colorless (Yellow); Protein,Urine <15 mg/dL mg/dL (Negative); Urobilinogen,Urine < 2.0 mg/dL (<2.0)
[2019-06-05 18:04] LABS: Hematocrit 38.7 % (30.3-42.9); Mean Corpuscular HGB Conc 34 % (30-34); Mean Corpuscular Volume 90 fl (79-97); Platelet Count 308 K/mm3 (140-440); Red Blood Count 4.29 M/mm3 (3.65-5.03); Red Cell Distribution Width 13.1 % (13.2-15.2)
[2019-06-05 18:11] LABS: Amphetamine Screen,Urine PRESUMPTIVE NEGATIVE; Benzodiazepines Screen,Urine PRESUMPTIVE NEGATIVE; Cannabinoid Screen,Urine PRESUMPTIVE NEGATIVE; Cocaine Screen,Urine PRESUMPTIVE NEGATIVE; Methadone Screen,Urine PRESUMPTIVE NEGATIVE; Opiate Screen,Urine PRESUMPTIVE NEGATIVE
[2019-06-05 18:22] LABS: INR 0.96 (0.87-1.13)
[2019-06-05 18:23] LABS: Partial Thromboplastin Time 30.4 Sec. (24.2-36.6); Thrombin Time 16.5 Sec. (15.1-19.6)
[2019-06-05 18:38] LABS: Creatine Kinase MB 2.5 ng/mL (0.0-4.0)
[2019-06-05 18:39] LABS: Hemolysis Index 1
[2019-06-05 18:51] LABS: Alanine Aminotransferase 13 units/L (7-56)
[2019-06-05 19:02] LABS: Basophils % (Manual) 0 % (0.0-1.8); Total Cells Counted 100
[2019-06-05 19:03] LABS: Anisocytosis Few; Ovalocytes Few; Platelet Estimate Consistent w Auto
[2019-06-05 19:38] LABS: Albumin 4.6 g/dL (3.9-5); BUN/Creatinine Ratio 17; Blood Urea Nitrogen 15 mg/dL (7-17); Calcium 9.8 mg/dL (8.4-10.2)
[2019-06-05 20:31] VITALS: BP 159/83
--- NOTE | 2019-06-05 20:43 | XRay Report ---
CHEST 1 VIEW INDICATION: cp. COMPARISON: None. FINDINGS: Support devices: None. Heart: Within normal limits. Lungs/Pleura: No acute air space or interstitial disease. Additional findings: None. IMPRESSION: No acute abnormality. Signer Name: Gennaro Dey MD Signed: 06/05/2019 8:39 PM Workstation Name: [id number]
--- NOTE | 2019-06-05 20:55 | Event Note ---
Date: 06/05/19 Pt seen and evaluated in ED. Left AMA. Pt reports that she will F/U with PCP in AM. - General Limitations: No Limitations, Physical Limitation General appearance: alert, in no apparent distress Suspected Stroke: No - Head Head exam: Present: atraumatic, normocephalic - Eye Eye exam: Present: normal appearance - ENT ENT exam: Present: mucous membranes moist - Neck Neck exam: Present: normal inspection - Respiratory Respiratory exam: Present: normal lung sounds bilaterally. Absent: respiratory distress - Cardiovascular Cardiovascular Exam: Present: regular rate, normal rhythm. Absent: systolic murmur, diastolic murmur, rubs, gallop - GI/Abdominal GI/Abdominal exam: Present: soft, normal bowel sounds - Rectal Rectal exam: Present: deferred - Extremities Exam Extremities exam: Present: normal inspection - Back Exam Back exam: Present: normal inspection - Neurological Exam Neurological exam: Present: alert, oriented X3, NO neurologic Deficit
== END 2019-06-05 20:58 | disposition admitted as inpatient to this hospital (09) ==
LOC: ED 16:59
DX: R07.89 Other chest pain (principal); R20.0 Anesthesia of skin; R53.1 Weakness; R47.9 Unspecified speech disturbances; I10 Essential (primary) hypertension; J45.909 Unspecified asthma, uncomplicated; Z88.8 Allergy status to other drugs, medicaments and biological substances; Z98.890 Other specified postprocedural states; Z79.899 Other long term (current) drug therapy
CPT/HCPCS: 36415; 70450; 71045; 80053; 80307; 81001; 82550; 82553; 82962; 84484; 85007; 85025; 85379; 85610; 85670; 85730; 86850; 86900; 86901; 93005; 93010; J0360; J2270; 96374; 96375

== ENCOUNTER 2020-12-05 02:15 | Emergency (ER) | payer SELFPAY ==
[2020-12-05 03:00] VITALS: BP 148/98
--- NOTE | 2020-12-05 05:52 | Emergency Department Report ---
ED Headache HPI - General Chief Complaint: Headache Stated Complaint: HEADACHE/ BLOOD PRESSURE Time Seen by Provider: 12/05/20 03:05 - History of Present Illness Initial Comments: Complains of 3-day history complains of a few day history of dull throbbing headache to the frontal parietal region that has been progressive worsening since the onset now associated with visual changes reports no hemoptysis no hematemesis no neck pain no fevers no ear pain Quality: mild, moderate Head Injury Location: frontal, parietal Recent Head Trauma: occasional headaches Modifying Factors: improves with: medication Associated Symptoms: denies: confusion, fatigue, facial pain, fever/chills, loss of consciousness, nausea/vomiting, nasal congestion, nasal drainage, numbness in legs/feet, seizures, sinus infection, stiff neck, vision changes, weakness Allergies/Adverse Reactions: Allergies allopurinol Adverse Reaction (Severe, Verified 10/19/18 19:40) Rash Home Medications: Ambulatory Orders Pravastatin Sodium 10 mg PO DAILY 03/30/17 ALBUTEROL NEB's PRN 10/18/18 Fluticasone/Salmeterol(Nf) [Advair HFA 230-21 mcg] PRN 10/18/18 Diphenhydramine HCl/Zinc Acet [Benadryl Itch Stopping Crm] 28.3 gm TP Q6H PRN #1 cream..g. 10/19/18 Hydrocortisone 2.5% [Hytone 2.5% CREAM] 1 applicatio TP BID #1 tube 10/19/18 Prednisone [predniSONE 10 mg (6-Day Pack, 21 Tabs)] 10 mg PO .TAPER #1 tab.ds.pk 10/19/18 amLODIPine 10 mg PO QDAY #30 tablet 10/19/18 diphenhydrAMINE [Benadryl CAP] 25 mg PO Q6H PRN #30 capsule 10/19/18 ED Review of Systems ROS: Stated complaint: HEADACHE/ BLOOD PRESSURE Other details as noted in HPI Comment: All other systems reviewed and negative ED Past Medical Hx - Past Medical History Previous Medical History?: Yes Hx Hypertension: Yes (irregular heart beat on atenolol) Hx Heart Attack/AMI: No Hx Liver Disease: No Hx Renal Disease: No Hx Arthritis: Yes (gout) Hx Seizures: Yes (long time ago, on not meds) Hx Asthma: Yes (had been hospitalized in the past. Inhaler everyday) Additional medical history: a-fib - Surgical History Past Surgical History?: Yes Additional Surgical History: x3 - Social History Smoking Status: Never Smoker Substance Use Type: None - Medications Home Medications: Home Medications Medication Instructions Recorded Confirmed Last Taken Type Pravastatin Sodium 10 mg PO DAILY 03/30/17 10/17/18 10/17/18 History ALBUTEROL NEB's PRN 10/18/18 Unknown History Fluticasone/Salmeterol(Nf) [Advair PRN 10/18/18 Unknown History HFA 230-21 mcg] Diphenhydramine HCl/Zinc Acet 28.3 gm TP Q6H PRN #1 cream..g. 10/19/18 Unknown Rx [Benadryl Itch Stopping Crm] Hydrocortisone 2.5% [Hytone 2.5% 1 applicatio TP BID #1 tube 10/19/18 Unknown Rx CREAM] Prednisone [predniSONE 10 mg 10 mg PO .TAPER #1 tab.ds.pk 10/19/18 Unknown Rx (6-Day Pack, 21 Tabs)] amLODIPine 10 mg PO QDAY #30 tablet 10/19/18 Unknown Rx diphenhydrAMINE [Benadryl CAP] 25 mg PO Q6H PRN #30 capsule 10/19/18 Unknown Rx ED Physical Exam - General Limitations: No Limitations General appearance: alert, in no apparent distress - Head Head exam: Present: atraumatic, normocephalic, normal inspection - Eye Eye exam: Present: normal appearance, PERRL, EOMI, scleral icterus. Absent: nystagmus Pupils: Present: normal accommodation - ENT ENT exam: Present: mucous membranes moist, TM's normal bilaterally - Neck Neck exam: Present: normal inspection - Respiratory Respiratory exam: Present: normal lung sounds bilaterally. Absent: respiratory distress - Cardiovascular Cardiovascular Exam: Present: regular rate, normal rhythm. Absent: systolic murmur, diastolic murmur, rubs, gallop - GI/Abdominal GI/Abdominal exam: Present: soft, normal bowel sounds - Extremities Exam Extremities exam: Present: normal inspection - Back Exam Back exam: Present: normal inspection. Absent: CVA tenderness (L) - Neurological Exam Neurological exam: Present: alert, oriented X3, CN II-XII intact - Psychiatric Psychiatric exam: Present: normal affect, normal mood - Skin Skin exam: Present: warm, dry, intact, normal color. Absent: rash ED Course Vital Signs 12/05/20 02:55 Temperature 97.8 F Pulse Rate 60 Respiratory 18 Rate Blood Pressure 148/98 O2 Sat by Pulse 99 Oximetry Critical care attestation.: If time is entered above; I have spent that time in minutes in the direct care of this critically ill patient, excluding procedure time. ED Disposition Clinical Impression: HTN (hypertension), Headache Disposition: ELOPED Is pt being admited?: No Does the pt Need Aspirin: No Condition: Undetermined Instructions: Hypertension (ED) Referrals: PRIMARY CARE, [Primary Care Provider] - 3-5 Days
== END 2020-12-05 06:00 | disposition left against medical advice (07) ==
LOC: ED 02:15
DX: I10 Essential (primary) hypertension (principal); R51.9 Headache, unspecified; M10.9 Gout, unspecified; J45.909 Unspecified asthma, uncomplicated; I48.91 Unspecified atrial fibrillation; Z79.899 Other long term (current) drug therapy; Z88.8 Allergy status to other drugs, medicaments and biological substances; Z86.69 Personal history of other diseases of the nervous system and sense organs; Z98.890 Other specified postprocedural states
CPT/HCPCS: 99281